=== PATIENT | male | born 1960 | race Caucasian/White ===

== ENCOUNTER 2023-05-15 10:47 | Emergency (ER) | payer BC, MEDICARE ==
[2023-05-15] MEDS ORDERED: methylPREDNISolone Sodium Succinate 125 MG/2 ML SDV IVPUSH ONE (11:15)
[2023-05-15] MEDS ORDERED: Famotidine 20 MG/2 ML SDV IVPUSH ONE (11:15)
[2023-05-15] MEDS ORDERED: Sodium Chloride 0.9% 10 ML Syringe FLUSH PRN ×2 (11:15→12:16)
[2023-05-15] MEDS: Albuterol 0.083% 2.5 MG/3 ML Neb Soln NEB SCH ×3 (11:30→11:52)
[2023-05-15 11:37] LABS: BASOPHILS ABSOLUTE AUTO 0.02 K/mm3 (0.01-0.08); BASOPHILS PERCENT AUTO 0.3 % (0.1-1.2); EOSINOPHILS ABSOLUTE AUTO 0.42 K/mm3 (0.04-0.54); EOSINOPHILS PERCENT AUTO 5.8 (0.8-7.0); HEMATOCRIT 48.3 % (40.1-51.0); HEMOGLOBIN 16.6 gm/dl (13.7-17.5); IMMATURE GRAN ABSOLUTE AUTO 0.01 K/mm3 (0.00-0.10); IMMATURE GRAN PERCENT AUTO 0.1 % (<=1.0); LYMPHOCYTES ABSOLUTE AUTO 1.21 K/mm3 (1.32-3.57); LYMPHOCYTES PERCENT AUTO 16.8 % (21.8-53.1); MEAN CORPUSCULAR HEMOGLOBIN 29.2 pg (25.7-32.2); MEAN CORPUSCULAR HGB CONC 34.4 g/dl (32.2-35.5); MEAN PLATELET VOLUME 8.3 fl (9.4-12.3); MONOCYTES ABSOLUTE AUTO 0.41 K/mm3 (0.30-0.82); MONOCYTES PERCENT AUTO 5.7 % (5.3-12.2); NEUTROPHILS ABSOLUTE AUTO 5.13 K/mm3 (1.78-5.38); NEUTROPHILS PERCENT AUTO 71.3 % (34.0-67.9); PLATELET COUNT,PLT 251 K/mm3 (163-337); RED BLOOD CELL COUNT 5.68 M/mm3 (4.63-6.08)
[2023-05-15 11:54] LABS: INR 0.97; PROTHROMBIN TIME 10.4 SECONDS (9.7-12.0)
[2023-05-15 11:56] LABS: PTT,PARTIAL THROMBOPLSTIN TIME 24.5 SECONDS (21.7-31.4)
[2023-05-15 12:02] LABS: ALBUMIN 3.4 g/dl (3.4-5.0); ANION GAP 10.1 (5-15); BILIRUBIN TOTAL 0.5 mg/dL (0.2-1.0); BUN/CREATININE RATIO 18.3 (14-18); CALCIUM 8.7 mg/dL (8.5-10.1); CREATININE 1.2 mg/dL (0.7-1.3); EST CRCL DRUG DOSING (CG) 67.36 mL/min; MAGNESIUM 2.3 mg/dL (1.8-2.4); POTASSIUM,K 4.1 mEq/L (3.5-5.1); PROTEIN TOTAL,TP 6.8 g/dl (6.4-8.2)
[2023-05-15 12:04] LABS: D-DIMER QUANTITATIVE 4.17 mg/L (0.19-0.50)
[2023-05-15] MEDS ORDERED: Aluminum Hydroxide/Magnesium Hydroxide/Simethicone Susp 30 ML Cup PO ONE (12:09)
[2023-05-15] MEDS ORDERED: Iopamidol 755 Mg/ML 100 ML Bottle IVPUSH ONE (12:16)
[2023-05-15] MEDS ORDERED: Sodium Chloride 0.9% 100 ML IV SCH (12:30)
[2023-05-15] MEDS ORDERED: Albuterol 6.7 GM Inhaler INH ONE (14:01)
[2023-05-15 14:38] VITALS: BP 138/77; PULSE 84
== END 2023-05-15 14:23 | disposition home or self-care (01) ==
LOC: JD.ED 10:47
DX: J45.901 Unspecified asthma with (acute) exacerbation (principal); K29.70 Gastritis, unspecified, without bleeding; J44.9 Chronic obstructive pulmonary disease, unspecified; Z91.018 Allergy to other foods; Z91.013 Allergy to seafood
CPT/HCPCS: 36415; 71045; 71275; 80053; 83735; 83880; 84484; 85025; 85379; 85610; 85730; 93005; 94640; 96374; 96375; 99285; A9270; J2930; J3490; Q9967; J7620-GY